=== PATIENT | female | born 1960 | race Caucasian/White ===

== ENCOUNTER 2020-04-07 07:21 | Emergency (ER) | payer OTHER ==
[2020-04-07] MEDS: Lidocaine 2% 5 ML SDV INJECT ONE (08:03)
--- NOTE | 2020-04-07 08:30 | EDM.PDOC ---
ED HPI GENERAL MEDICAL PROBLEM - General Chief Complaint: General Stated Complaint: FISH HOOK Time Seen by Provider: 04/07/20 08:00 Source of Information: Reports: Patient - History of Present Illness INITIAL COMMENTS - FREE TEXT/NARRATIVE: 59 year old Patient presents to the ER via ambulatory for a fish hook in lateral left thumb. States she was switching out tackle last night and the treble hook snagged her thumb. States she was unable to pull the hook out. The hook was cut from base & only a small part was visible .The patient was c/o pain -sharp .3/10 located on left thumb-The patient reported that she had Tdap shot last year . denies any fever ,N/V ,headache ,chest pain,cough,shortness of breath ,abdominal pain Onset: Today, Sudden Duration: Hour(s): (12) Location: Reports: Upper Extremity, Left Quality: Reports: Sharp Improves with: Reports: None Worsens with: Reports: None Associated Symptoms: Reports: No Other Symptoms Left Finger-Thumb Pain Score (Numeric/FACES): 3 Past Medical History Cardiovascular History: Reports: Hypertension - Past Surgical History GI Surgical History: Reports: Bariatric Procedure Social & Family History - Family History Family Medical History: No Pertinent Family History - Tobacco Use Tobacco Use Status *Q: Never Tobacco User Second Hand Smoke Exposure: No - Caffeine Use Caffeine Use: Reports: None - Recreational Drug Use Recreational Drug Use: No ED ROS GENERAL - Review of Systems Review Of Systems: See Below Constitutional: Reports: No Symptoms HEENT: Reports: No Symptoms Respiratory: Reports: No Symptoms, Shortness of Breath, Wheezing, Cough, Sputum Cardiovascular: Reports: No Symptoms, Chest Pain, Dyspnea on Exertion, Lightheadedness GI/Abdominal: Reports: No Symptoms, Abdominal Pain, Diarrhea Musculoskeletal: Reports: No Symptoms, Hand Pain Skin: Reports: No Symptoms ED EXAM, GENERAL - Physical Exam Exam: See Below Exam Limited By: No Limitations General Appearance: Alert, WD/WN, No Apparent Distress Head: Atraumatic, Normocephalic Neck: Supple Respiratory/Chest: No Respiratory Distress, Lungs Clear, Normal Breath Sounds, No Accessory Muscle Use, Chest Non-Tender Cardiovascular: Normal Peripheral Pulses, Regular Rate, Rhythm, No Edema, No Gallop, No Rub, Systolic Murmur GI/Abdominal: Normal Bowel Sounds, Soft, Non-Tender, No Organomegaly, No Distention Extremities: Normal Range of Motion, Non-Tender, Other (fished embeded in left thumb ) Neurological: Alert, Oriented, CN II-XII Intact Course - Vital Signs Text/Narrative:: Vitals monitored left thumb was dipped in warm saline area was cleaned with betdine solution local anesthetic xylocaine 2% 1 cc locally infiltrated. Hook was removed by apply an cargo service agent & pulled out Pt tolerated the procedure very well Disposition- the patien was discharge home Last Recorded V/S: Last Vital Signs Temp 98.3 F 04/07/20 07:30 Pulse 64 04/07/20 07:30 Resp 18 04/07/20 07:30 BP 151/87 H 04/07/20 07:30 Pulse Ox 100 04/07/20 07:30 - Orders/Labs/Meds Meds: Medications Discontinued Medications Generic Name Dose Route Start Last Admin Trade Name Quinn PRN Reason Stop Dose Admin Lidocaine 1.5 ml 04/07/20 08:00 04/07/20 08:03 Xylocaine-Mpf 2% INJECT 04/07/20 08:01 1.5 ml ONETIME ONE Administration Departure - Departure Time of Disposition: 08:00 Disposition: Home, Self-Care 01 Clinical Impression: Fish hook injury of left thumb - Discharge Information *PRESCRIPTION DRUG MONITORING PROGRAM REVIEWED*: No *COPY OF PRESCRIPTION DRUG MONITORING REPORT IN PATIENT ROSA: No Instructions: Wound Infection, Aspv-se-Myat, Wound Care, Adult Referrals: PCP,None [Primary Care Provider] - Forms: ED Department Discharge Additional Instructions: Discharge home. Monitor the left thumb for signs of infection-pus, increased pain. Keep a dressing on till tomorrow, keep wound clean and dry. Follow up as needed with your primary provider. Sepsis Event Note (ED) - Evaluation Sepsis Screening Result: No Definite Risk - Focused Exam Vital Signs: Vital Signs Temp Pulse Resp BP Pulse Ox 04/07/20 07:30 98.3 F 64 18 151/87 H 100 - Problem List & Annotations (1) Fish hook injury of left thumb SNOMED Code(s): 832825815 Code(s): S69.92XA - UNSP INJURY OF LEFT WRIST, HAND AND FINGER(S), INIT ENCNTR Status: Acute Priority: Medium Onset Date: ~04/07/20 Qualifiers: Encounter type: initial encounter Qualified Code(s): S69.92XA - Unspecified injury of left wrist, hand and finger(s), initial encounter - Assessment/Plan Plan: Keep the area clean Go to ER if there is infection ,swelling or extreme pain f/u up with your pCP
== END 2020-04-07 08:15 | disposition home or self-care (01) ==
LOC: LB.ED 07:21
DX: S60.352A Superficial foreign body of left thumb, initial encounter (principal); I10 Essential (primary) hypertension; W45.8XXA Other foreign body or object entering through skin, initial encounter
CPT/HCPCS: 99283